=== PATIENT | female | born 1950 | race African-American/Black ===

== ENCOUNTER 2016-07-12 07:06 | Inpatient (IN) | payer MEDICARE ==
[~2016-07-12] VITALS: Ht 165.1 cm; Wt 77.5 kg
[~2016-07-12 07:06] MED LIST: ASPIRIN81 MG PO; ATIVAN0.5 MG; ATIVAN0.5 MG PO; ATIVAN1 MG PO; CHLORTHALIDONE25 MG PO; COREG 3.1253.125 MG PO; COREG6.25 MG PO; DIOVAN320 MG PO; EFFEXOR100 MG PO; EFFEXOR75 MG PO; GLUCOPHAGE1000 MG PO; HYDRALAZINE HCL25 MG PO; HYDROCHLOROTHIA25 MG PO; HYDROCODONE-APA1 TAB PO; K-DUR20 MEQ PO; LANTUS INSULIN10 ML; LANTUS SOL100 UNIT/1 SC; LEVAQUIN500 MG PO; LIPITOR80 MG PO; MERTAZAPINE PO; NORVASC5 MG PO; NOVOLOG100 U/M1 SC; PEPCID40 MG PO; PLAVIX75 MG PO; PROTONIX40 MG PO; PROZAC40 MG PO; REGLAN5 MG PO; REMERON30 MG PO; RESTORIL15 MG PO; SEROQUEL200 MG PO; SEROQUEL400 MG PO; SOMA350 MG PO; SYNTHROID50 MCG PO; XANAX0.5 MG PO
[2016-07-12 07:46] LABS: BASOPHILS 0.6 % (0.0-2.0); EOSINOPHILS 5.4 % (0-7); HEMATOCRIT 44.8 % (36.0-48.0); HEMOGLOBIN 14.8 g/dL (12-16); IMMATURE GRANULOCYTES 0.2 % (0-5); LYMPHOCYTES 38.6 % (15-50); MCH 29.6 pg (26.0-34.0); MCV 89.6 fL (80.0-100.0); MONOCYTES 7.3 % (2-11); NEUTROPHILS 47.9 % (40-80); RDW 14.1 % (11.5-14.5); WBC 4.8 10x3/uL (4.8-10.8)
[2016-07-12 07:54] LABS: PLATELET COUNT 109 10x3/uL (130-400)
[2016-07-12 07:57] LABS: CALC OSMOLALITY 280 mosm/kg (275-300); CALCIUM 9.1 mg/dL (8.5-10.1); CARBON DIOXIDE 27.4 mmol/L (21.0-32.0); CHLORIDE - SERUM 103 mmol/L (98-107); CREATININE - SERUM 0.7 mg/dL (0.6-1.3); POTASSIUM - SERUM 3.6 mmol/L (3.5-5.1); SODIUM 140 mmol/L (136-145); UREA NITROGEN 11 mg/dL (7-18); eGFR NON AFRICAN AMERICAN 89 mL/min (90-120)
[2016-07-12 08:00] LABS: GLUCOSE 144 mg/dL (74-106)
[2016-07-12 08:11] LABS: ALKALINE PHOSPHATASE 114 U/L (46-116); ALT (SGPT) 72 U/L (10-68); PROTEIN - SERUM 8.3 g/dL (6.4-8.2)
[2016-07-12 09:24] LABS: APPEARANCE SLT CLOUDY (CLEAR); BACTERIA FEW /hpf (NONE SEEN); BILIRUBIN NEGATIVE (NEGATIVE); COLOR YELLOW (YELLOW); EPITHELIAL CELLS 0-5 /hpf (0-5); GLUCOSE NEGATIVE (NEGATIVE); KETONE SMALL mg/dL (NEGATIVE); LEUKOCYTE ESTERASE 2+ (NEGATIVE); NITRITE NEGATIVE (NEGATIVE); PROTEIN 1+ mg/dL (NEGATIVE); RED CELLS - URINE 25-50 /hpf (0-5); SPECIFIC GRAVITY 1.015 (1.005-1.020); UROBILINOGEN NORMAL (NORMAL)
--- NOTE | 2016-07-12 12:43 | NUR ---
PT TO ROOM VIA ER STRETCHER. PT NONVERBAL IS AWAKE. NO FAMILY WILL ADMIT
[2016-07-12 12:45] VITALS: BP 199/122; BMI 28.6
[2016-07-12] MEDS ORDERED: NYSTATIN ORAL SU5 ML PO (13:20)
[2016-07-12] MEDS ORDERED: ATIVAN2 MG PO (13:20)
[2016-07-12] MEDS ORDERED: SILACE50 MG/5 ML PO (13:21)
[2016-07-12] MEDS ORDERED: BAYER CHEWABLE81 MG PO (13:21)
[2016-07-12] MEDS ORDERED: KEPPRA SOLU100 MG/ML PO (13:22)
[2016-07-12] MEDS ORDERED: POTASSIUM20 MEQ/PKT PO (13:23)
[2016-07-12] MEDS ORDERED: PERISOL437 ML MM (13:23)
--- NOTE | 2016-07-12 13:28 | NUR ---
ADMITTED PT, HER BP IS VERY ELEVATED. TRIED TO CALL HER . NO ANSWER. GOT IN TOUCH WITH HER PHARM AND COMPLETED MED LIST BEST POSSIBLE. CALLED DR MARSHALL OFFICE TO SEE ABOUT MEDICATION FOR BP. HE SAID HE WOULD BE OVER SOON.
--- NOTE | 2016-07-12 13:35 | NUR ---
SCD APPLIED BILATERAL EXTREMITES. SUCTION SET UP PRN BASIS.
--- NOTE | 2016-07-12 14:06 | NUR ---
CALLED [facility] AND ASKED THEM TO BRING UP A [place] PUMP FOR PT TO START TUBE FEEDINGS. SENDING ONE SRINI
[2016-07-12 14:25] VITALS: Ht 165.1 cm; Wt 77.5 kg
--- NOTE | 2016-07-12 15:31 | NUR ---
STILL WAITING FOR [facility] TO BRING [place] PUMP.
--- NOTE | 2016-07-12 16:27 | NUR ---
STARTED TUBE FEEDING AT 20 CC/HR TO START PER [facility] CHARGE NURSE. INCREASE Q4 HOURS. GOAL OF 50 CC/HR. FLUSH 100CC Q6H
--- NOTE | 2016-07-12 17:55 | NUR ---
PT SITTING UP IN BED NO S/S DISTRESS NOTED. LEAVING FOR THE DAY WILL CONT TO MONITOR.
[2016-07-12 20:00] VITALS: BP 149/102
--- NOTE | 2016-07-12 23:14 | NUR ---
REPOSITIONED IN BED FOR COMFORT.
[2016-07-13] VITALS: BP 137/91
--- NOTE | 2016-07-13 00:37 | NUR ---
HEALTH CONCIERGE AT BEDSIDE TO OBTAIN VITALS, CALL LIGHT IN REACH. WILL CONTINUE WITH PLAN OF CARE.
--- NOTE | 2016-07-13 03:44 | NUR ---
RESTING WITH EYES CLOSED, RESPERATONS EVEN, NO S/S DISTRESS NOTED.
[2016-07-13 04:00] VITALS: BP 136/74
[2016-07-13 06:27] LABS: BASOPHILS 0.6 % (0.0-2.0); EOSINOPHILS 9.6 % (0-7); HEMATOCRIT 41.5 % (36.0-48.0); HEMOGLOBIN 13.2 g/dL (12-16); IMMATURE GRANULOCYTES 0.2 % (0-5); LYMPHOCYTES 46.5 % (15-50); MCHC 31.8 g/dL (31.0-37.0); MCV 91.2 fL (80.0-100.0); MEAN PLATELET VOLUME 12.5 fL (7.4-10.4); NEUTROPHILS 34.1 % (40-80); PLATELET COUNT 108 10x3/uL (130-400); RBC 4.55 10x6/uL (4.00-5.40); RDW 14.4 % (11.5-14.5)
[2016-07-13 06:57] LABS: ALBUMIN 2.5 g/dL (3.4-5.0); ALKALINE PHOSPHATASE 100 U/L (46-116); ALT (SGPT) 55 U/L (10-68); CALCIUM 8.1 mg/dL (8.5-10.1); CARBON DIOXIDE 33.4 mmol/L (21.0-32.0); CHLORIDE - SERUM 107 mmol/L (98-107); CREATININE - SERUM 0.8 mg/dL (0.6-1.3); GLUCOSE 173 mg/dL (74-106); MAGNESIUM - SERUM 2.1 mg/dL (1.8-2.4); PHOSPHOROUS 3.1 mg/dL (2.5-4.9); POTASSIUM - SERUM 3.4 mmol/L (3.5-5.1); PRO BNP 134 pg/mL (0-125); PROTEIN - SERUM 7.1 g/dL (6.4-8.2); SODIUM 144 mmol/L (136-145); eGFR NON AFRICAN AMERICAN 76 mL/min (90-120)
[2016-07-13 07:01] LABS: CALC OSMOLALITY 291 mosm/kg (275-300); UREA NITROGEN 16 mg/dL (7-18)
[2016-07-13 07:56] VITALS: BP 171/97
--- NOTE | 2016-07-13 08:02 | NUR ---
AM ROUNDING- RECEIVED REPORT FROM [facility] BLOW PIT HELPER NURSE. PT IS LAYING IN BED ON BACK WITH EYES OPEN RESTING. PT IS NON-VERBAL. DOES OPEN EYES TO VOICE. ON BEDREST. ON MONITOR SHOWING SR, HR 75. TRACH SEEN WITH 30% O2 VIA TRACH COLLAR PER BERNADINE WITH RESPIRATORY. CHRONIC ALMENDAREZ SEEN WITH YELLOW URINE. IV SEEN TO LEFT HAND WITH NS RUNNING AT 50CC. PEG TUBE SEEN TO LEFT SIDE OF ABDOMINAL AREA WITH GLUCERNA 1.5 RUNNING AT 50CC/HR WITH 100CC WATER FLUSHES Q6H. SCDS ARE ON. WILL CONTINUE TO MONITOR AND CONTINUE WITH PLAN OF CARE.
[2016-07-13 11:38] VITALS: BP 156/97
[2016-07-13 15:30] VITALS: BP 157/96
--- NOTE | 2016-07-13 15:38 | NUR ---
UPON PTS LINEN CHANGE FROM PT BEING INCONTINENT OF STOOL, NOTICED BANDAID TYPE DRESSING ON PTS LEFT UPPER LEG AREA. STAGE II WOUND SEEN WITH MEASUREMENTS OF 2CM X 1CM. NO DRAINAGE SEEN. YELLOW TISSUE SEEN WITH BLACK EDGES. COVERED WITH BORDERED GAUZE. WILL CONTINUE TO MONITOR.
--- NOTE | 2016-07-13 16:40 | NUR ---
PT IS LAYING IN BED SLIGHTLY TURNED ON LEFT SIDE WITH HOB ELEVATED AT 30 DEGREES. PT RESPONDS TO VOICE BUT OTHER THAN THAT PT IS NON-VERBAL. BED ALARM IS ON AND SIDE RAILS ARE UP X2. WILL CONTINUE TO MONITOR.
--- NOTE | 2016-07-13 19:30 | NUR ---
ASSESSMENT DONE. PT SLEEPING. EYES CLOSED, RESP UNLABORED. TRACH COLLAR WITH O2 AT 9L. PT DID NOT OPEN EYES OR RESPOND WHILE NURSE ASSESSED PT. ALMENDAREZ PATENT TO BSD WITH APPROX 150ML OF DARK YELLOW URINE. IV TO RT HAND PATENT WITH NS AT KVO, NO S/S OF INFILTRATION. PEG TUBE WITH CONT FEEDING AT 50ML/HR. NURSE CHECKED FOR RESIDUAL, APPROX 36ML NOTED. NO DISTRESS NOTED. NO FAMILY AT BEDSIDE. WILL CONT. TO MONITOR.
[2016-07-13 20:00] VITALS: BP 154/90
--- NOTE | 2016-07-13 22:12 | NUR ---
PT OPENED EYE WHEN NURSE WAS GIVING MEDS THROUGH PEG TUBE. NURSE REPOSITIONED PT. WHEN NURSE ATTEMPTED TO PLACE PILLOW TO POSITION PT ON RT SIDE PT SHOOK HER HEAD NO. NURSE THEN POSITIONED PT ON HER BACK, PLACED PILLOW UNDER BOTH LEGS AND ELEVATED FOOT OF BED. NO DISTRESS NOTED. PT APPEARS COMFORTABLE. BED DOWN SIDE RAILS UP X2, BED ALARM ON. ORAL CARE PROVIDED. CALL LIGHT WITH IN REACH. WILL CONT. TO MONITOR.
[2016-07-14] VITALS: BP 158/106
--- NOTE | 2016-07-14 00:07 | NUR ---
PT REPOSITIONED. OPENED EYES. PT NON-VERBAL. NO DISTRESS NOTED. WILL CONT. TO MONITOR.
--- NOTE | 2016-07-14 03:03 | NUR ---
PT SLEEPING. EYES CLOSED. RESP EVEN AND UNLABORED. O2 GOING TO TRACH COLLAR. PT APPEARS COMFORTALBE. WILL CONT. TO MONITOR.
[2016-07-14 04:00] VITALS: BP 162/100
--- NOTE | 2016-07-14 04:11 | NUR ---
SL IV PER ORDER. PT AWAKE AND LOOKING AROUND ROOM. NON-VERBAL. REPOSITIONED PT AND EMPTIED ALMENDAREZ. PT APPEARS COMFORTABLE. FEEDING PUMP TUBING CHANGED. WILL CONT. TO MONITOR.
--- NOTE | 2016-07-14 05:17 | NUR ---
STITCHDOWN THREAD LASTER AT BEDSIDE TO OBTAIN VITALS, CALL LIGHT IN REACH. WILL CONTINUE WITH PLAN OF CARE.
[2016-07-14 06:48] LABS: BASOPHILS 0.4 % (0.0-2.0); EOSINOPHILS 11.3 % (0-7); HEMATOCRIT 42.4 % (36.0-48.0); HEMOGLOBIN 13.4 g/dL (12-16); IMMATURE GRANULOCYTES 0.2 % (0-5); LYMPHOCYTES 52.4 % (15-50); MCHC 31.6 g/dL (31.0-37.0); MCV 91.8 fL (80.0-100.0); MEAN PLATELET VOLUME 13.8 fL (7.4-10.4); MONOCYTES 6.2 % (2-11); NEUTROPHILS 29.5 % (40-80); PLATELET COUNT 115 10x3/uL (130-400); RBC 4.62 10x6/uL (4.00-5.40); RDW 14.1 % (11.5-14.5); WBC 4.9 10x3/uL (4.8-10.8)
[2016-07-14 07:11] LABS: ALBUMIN 2.7 g/dL (3.4-5.0); ALKALINE PHOSPHATASE 102 U/L (46-116); ALT (SGPT) 48 U/L (10-68); CALC OSMOLALITY 289 mosm/kg (275-300); CALCIUM 8.6 mg/dL (8.5-10.1); CARBON DIOXIDE 33.4 mmol/L (21.0-32.0); CHLORIDE - SERUM 106 mmol/L (98-107); CREATININE - SERUM 0.6 mg/dL (0.6-1.3); GLUCOSE 180 mg/dL (74-106); POTASSIUM - SERUM 3.5 mmol/L (3.5-5.1); PROTEIN - SERUM 7.6 g/dL (6.4-8.2); SODIUM 143 mmol/L (136-145); UREA NITROGEN 13 mg/dL (7-18); eGFR NON AFRICAN AMERICAN > 90 mL/min (90-120)
--- NOTE | 2016-07-14 07:41 | NUR ---
0700- AM ROUNDING. RECEIVED REPORT FROM MILL TENDER WASHING NURSE PURA. PT IS LAYING IN BED ON BACK WITH EYES OPEN, HOB ELEVATED AT 30 DEGREES. ON MONITOR SHOWING SR, HR 72. TRACH WITH TRACH COLLAR SEEN WITH 02 AT 9L (30% O2). IV SEEN TO LEFT HAND THAT IS CURRENTLY SALINE LOCKED. PEG TUBE SEEN WITH GLUCERNA 1.5 RUNNING AT 50CC/HR WITH 100CC WATER FLUSHES Q6H. SCDS ARE ON. PT IS NON-VERBAL, RESPONDS TO VOICE. NO NEED AT CURRENT TIME. WILL CONTINUE TO MONITOR.
--- NOTE | 2016-07-14 10:05 | NUR ---
PT PLACED IN DROPLET ISOLATION ORDERED FOR STAPH IN SPUTUM PER ALAN WITH INFECTION CONTROL. WILL CONTINUE TO MONITOR.
[2016-07-14 12:00] VITALS: BP 141/91
--- NOTE | 2016-07-14 15:07 | NUR ---
Patient Name: KENYA KEITH Admission Status: ER Accout number: [id number] Admission Date: 07-12-2016 : 1950 Admission Diagnosis:FEVER, UNSPECIFIED Attending: BRITANY Current LOS: 2 Anticipated DC Date: 07-14-2016 Planned Disposition: Home with Home Health Primary Insurance: MEDICARE A & B Discharge Planning Comments: * Is the patient Alert and Oriented? No 0 * How many steps to enter\exit or inside your home? NONE 0 * PCP DR MARSHALL 0 * Preadmission Environment Home with Family 0 * ADLs Total Dependent 0 * Equipment Enteral Feeding and Supplies 0 * Other Equipment PT'S SPOUSE REPORTS HAVING ALL NEEDED MEDICAL EQUIPMENT, UNSURE OF PROVIDER AT THIS TIME. 0 * List name and contact numbers for known caregivers / representatives who currently or will assist patient after discharge: NETTA KEITH, SPOUSE, 0 * Community resources currently utilized Home Health 0 * Please name any agencies selected above. [facility], 0 * Additional services required to return to the preadmission environment? No 0 * Can the patient safely return to the preadmission environment? Yes 0 * Has this patient been hospitalized within the prior 30 days at any hospital? No 0 CM RECEIVED DISCHARGE ORDER, MET WITH PT IN ROOM TO DISCUSS DISCHARGE PLANNING AND NEEDS. PT NOT ABLE TO PARTICIPATE. CM LEFT IMPORTANT MESSAGE FROM MEDICARE PROVIDED. CM CALLED PT'S SPOUSE, NETTA, . NETTA REPORTS HAVING ALL NEEDED MEDICAL EQUIPMENT AT HOME AND HOME HEALTH WITH [facility]. PT IS TOTAL CARE. PT'S SPOUSE AND ADULT SON ARE PT'S CAREGIVERS. NETTA REPORTS NEEDING NOTHING. CM EXPLAINED IMPORTANT MESSAGE FROM MEDICARE. NETTA REPORTS AGREEMENT WITH DISCHARGE PLAN, REPORTS HE SPOKE TO DR. MARSHALL THIS MORNING AND IS AT HOME WAITING FOR PT TO GET HOME. NETTA REPORTS TO CALL AMBULANCE AND SEND PT HOME WHERE HE IS WAITING. NETTA ASKED TO NOTIFY [facility] OF PT'S RETURN HOME SO THAT THEY CAN RESUME HER ONCE WEEKLY SERVICES. CM CALLED [facility], , SPOKE TO OBEY WHO WILL RESUME PT'S HOME CARE. CM FAXED DISCHARGE INFORMATION TO [facility]HEL. BILLBOARD MECHANIC NOTIFIED. PT TO TRANSPORT HOME VIA AMBULANCE. Funeral Pre Arrangement Specialist: Manjit Mg
--- NOTE | 2016-07-14 17:10 | NUR ---
PT IS UNABLE TO SIGN D/C PAPERWORK DUE TO BEING IN A VEGETATIVE STATE. SENT HOME D/C INSTRUCTIONS WITH EMS TO GIVE TO AT HOME. PTS IV TO LEFT HAND REMOVED WITH CATH TIP INTACT. HEART MONITOR REMOVED AND RETURNED TO [facility] IN TELEMETRY. PEG TUBE CLAMPED FOR TRAVEL HOME. SABIHA WITH RESPIRATORY CAME INTO ROOM AND PUT PT ON O2 THROUGH SPECIFIC MASK VIA TRACH COLLAR AND HAD EMS HOOK IT UP TO THEIR O2 TANK. PT D/C TO HOME VIA EMS ([facility]).
== END 2016-07-14 17:16 | disposition home or self-care (01) | DRG 178 ==
LOC: D.ER 07:06 → D.M2 11:52
PROVIDERS: Emergency Medicine; ADMIT Family Medicine
DX: J69.0 Pneumonitis due to inhalation of food and vomit (principal); N39.0 Urinary tract infection, site not specified; R40.3 Persistent vegetative state; J98.11 Atelectasis; I10 Essential (primary) hypertension; E11.9 Type 2 diabetes mellitus without complications; R74.8 Abnormal levels of other serum enzymes; I69.398 Other sequelae of cerebral infarction

== ENCOUNTER → 2016-09-12 12:55 | Outpatient (CLI) | payer MEDICARE ==
[2016-07-12 14:25] VITALS: BMI 28.6
[~2016-09-12 12:55] MED LIST changes: +ATIVAN2 MG PO; +BAYER CHEWABLE81 MG PO; +KEPPRA SOLU100 MG/ML PO; +NYSTATIN ORAL SU5 ML PO; +PERISOL437 ML MM; +POTASSIUM20 MEQ/PKT PO; +SILACE50 MG/5 ML PO
[2016-09-12 13:18] LABS: APPEARANCE SLT CLOUDY (CLEAR); BILIRUBIN NEGATIVE (NEGATIVE); COLOR YELLOW (YELLOW); GLUCOSE NEGATIVE (NEGATIVE); KETONE NEGATIVE (NEGATIVE); LEUKOCYTE ESTERASE 2+ (NEGATIVE); NITRITE NEGATIVE (NEGATIVE); PROTEIN TRACE mg/dL (NEGATIVE); SPECIFIC GRAVITY 1.005 (1.005-1.020); UROBILINOGEN NORMAL (NORMAL)
[2016-09-12 13:19] LABS: BACTERIA MANY /hpf (NONE SEEN); EPITHELIAL CELLS 0-5 /hpf (0-5); MUCUS <1+ /lpf (NONE SEEN); RED CELLS - URINE 0-5 /hpf (0-5)
== END | disposition home or self-care (01) ==
LOC: D.LABREF 12:55
PROVIDERS: Family Medicine
DX: R30.0 Dysuria (principal)

== ENCOUNTER 2016-12-07 18:12 | Emergency (ER) | payer MEDICARE ==
[2016-07-12 14:25] VITALS: BMI 28.6
[2016-12-07 20:18] LABS: BASOPHILS 0.4 % (0-2); EOSINOPHILS 9.3 % (0-7); HEMATOCRIT 44.8 % (36.0-48.0); HEMOGLOBIN 14.7 g/dL (12-16); LYMPHOCYTES 48.4 % (15-50); MCH 29.5 pg (26.0-34.0); MCHC 32.8 g/dL (31.0-37.0); MCV 89.8 fL (80.0-100.0); MEAN PLATELET VOLUME 12.2 fL (7.4-10.4); MONOCYTES 4.5 % (2-11); NEUTROPHILS 37.4 % (40-80); PLATELET COUNT 159 10x3/uL (130-400); RBC 4.99 10x6/uL (4.00-5.40); RDW 14.4 % (11.5-14.5); WBC 5.5 10x3/uL (4.8-10.8)
[2016-12-07 20:32] LABS: ALBUMIN 2.7 g/dL (3.4-5.0); ALKALINE PHOSPHATASE 165 U/L (46-116); ALT (SGPT) 99 U/L (10-68); BILIRUBIN - TOTAL 0.22 mg/dL (0.2-1.3); CALC OSMOLALITY 280 mosm/kg (275-300); CALCIUM 8.5 mg/dL (8.5-10.1); CARBON DIOXIDE 28.2 mmol/L (21.0-32.0); CHLORIDE - SERUM 105 mmol/L (98-107); CREATININE - SERUM 0.5 mg/dL (0.6-1.3); POTASSIUM - SERUM 3.7 mmol/L (3.5-5.1); PROTEIN - SERUM 8.2 g/dL (6.4-8.2); SODIUM 141 mmol/L (136-145); UREA NITROGEN 16 mg/dL (7-18); eGFR NON AFRICAN AMERICAN > 90 mL/min (90-120)
[2016-12-07 20:33] LABS: GLUCOSE 81 mg/dL (74-106)
[2016-12-07 22:21] LABS: APPEARANCE CLOUDY (CLEAR); BACTERIA MANY /hpf (NONE SEEN); BILIRUBIN NEGATIVE (NEGATIVE); CALCIUM OXALATE CRYSTALS RARE /hpf (NONE SEEN); COLOR STRAW (YELLOW); EPITHELIAL CELLS 0-5 /hpf (0-5); GLUCOSE NEGATIVE (NEGATIVE); KETONE NEGATIVE (NEGATIVE); LEUKOCYTE ESTERASE 2+ (NEGATIVE); MUCUS <1+ /lpf (NONE SEEN); NITRITE POSITIVE (NEGATIVE); PROTEIN NEGATIVE (NEGATIVE); RED CELLS - URINE 0-5 /hpf (0-5); UROBILINOGEN NORMAL (NORMAL); WHITE CELLS - URINE 25-50 /hpf (0-5)
== END 2016-12-07 23:09 | disposition home or self-care (01) ==
LOC: D.ER 18:12
PROVIDERS: Emergency Medicine
DX: J20.9 Acute bronchitis, unspecified (principal); R06.00 Dyspnea, unspecified; N39.0 Urinary tract infection, site not specified; R05 Cough; I10 Essential (primary) hypertension; E11.9 Type 2 diabetes mellitus without complications; K21.9 Gastro-esophageal reflux disease without esophagitis

== ENCOUNTER 2016-12-17 00:20 | Emergency (ER) | payer MEDICARE ==
[2016-07-12 14:25] VITALS: BMI 28.6
== END 2016-12-17 01:47 | disposition home or self-care (01) ==
LOC: D.ER 00:20
DX: K94.29 Other complications of gastrostomy (principal); K21.9 Gastro-esophageal reflux disease without esophagitis; I10 Essential (primary) hypertension; E11.9 Type 2 diabetes mellitus without complications

== ENCOUNTER 2017-02-03 10:36 | Emergency (ER) | payer MEDICARE ==
[2016-07-12 14:25] VITALS: BMI 28.6
== END 2017-02-03 16:00 | disposition home or self-care (01) ==
LOC: D.ER 10:36
DX: K94.29 Other complications of gastrostomy (principal); Z86.73 Personal history of transient ischemic attack (TIA), and cerebral infarction without residual deficits; K21.9 Gastro-esophageal reflux disease without esophagitis; I10 Essential (primary) hypertension; E11.9 Type 2 diabetes mellitus without complications

== ENCOUNTER 2017-04-09 04:47 | Emergency (ER) | payer MEDICARE ==
[2016-07-12 14:25] VITALS: BMI 28.6
== END 2017-04-09 05:42 | disposition home or self-care (01) ==
LOC: D.ER 04:47
DX: K94.20 Gastrostomy complication, unspecified (principal); K21.9 Gastro-esophageal reflux disease without esophagitis; I10 Essential (primary) hypertension